=== PATIENT | male | born 1960 | race Caucasian/White ===

== ENCOUNTER 2018-12-19 10:59 | Day surgery (SDC) | payer OTHER ==
[2018-12-10 09:47] VITALS: BMI 27.1
--- NOTE | 2018-12-19 02:47 | P.GSHP ---
History of Present Illness H&P Date: 12/19/18 CHIEF COMPLAINT: Ventral hernia HISTORY OF PRESENT ILLNESS: The patient is a 58-year-old female who presents with a history of swelling and pain along the abdomen from a hernia. Now he presents for surgical intervention. PAST MEDICAL HISTORY: Please see list. PAST SURGICAL HISTORY: Please see list. MEDICATIONS: Please see list. ALLERGIES: Please see list. SOCIAL HISTORY: No illicit drug use FAMILY HISTORY: No reports of Crohn disease or ulcerative colitis. REVIEW OF ORGAN SYSTEMS: CONSTITUTIONAL: No reports of fevers or chills. No reports of weight loss despite prior attempts. GI: Denies any blood in stools or constipation. PHYSICAL EXAM: VITAL SIGNS: Stable GENERAL: Well-developed pleasant female in no acute distress. HEENT: No scleral icterus. Extraocular movements grossly intact. Moist buccal mucosa. NECK: Supple without lymphadenopathy. CHEST: Unlabored respirations. Equal bilateral excursions. CARDIOVASCULAR: Regular rate and rhythm. Distal 2+ pulses. ABDOMEN: Soft, nondistended. Palpable defect of the abdomen. No peritoneal signs. MUSCULOSKELETAL: No clubbing, cyanosis, or edema. ASSESSMENT: 1. Ventral hernia PLAN: 1. Recommend proceeding with robotic ventral hernia repair with mesh. 2. Benefits and risks of surgical intervention was discussed including possibility of open technique. 3. DVT prophylaxis. 4. Antibiotic prophylaxis. Past Medical History Past Medical History: Chest Pain / Angina, Hypertension Additional Past Medical History / Comment(s): STATES HIGH BLOOD PRESSURE WHEN SEEN AT DR IBARRA BUT HE CHANGED DIET AND STARTED TAKING SUPPLEMENTS TO LOWER BP INSTEAD OF STARTING MEDICATION- PATIENT STATES BP HAS IMPROVED . , DDD, HX OF INFLAMED PROSTATE (31 YRS OLD), STATES HE HAS SOME DIFFICULTY STARTING URINE STREAM ., RINGING LEFT EAR. History of Any Multi-Drug Resistant Organisms: None Reported Past Surgical History: No Surgical Hx Reported Past Anesthesia/Blood Transfusion Reactions: Motion Sickness Additional Past Anesthesia/Blood Transfusion Reaction / Comment(s): PATIENT HAS NEVER RECEIVED ANESTHESIA Past Psychological History: No Psychological Hx Reported Smoking Status: Former smoker Past Alcohol Use History: Occasional Additional Past Alcohol Use History / Comment(s): SMOKED 2 YEARS, AGE 17 TO 19. Past Drug Use History: None Reported - Past Family History Mother Family Medical History: No Reported History Medications and Allergies Home Medications Medication Instructions Recorded Confirmed Type [place]-3 Fatty Acids [[place]-3] 2,200 mg PO PC-SUPPER 12/10/18 12/10/18 History Red Yeast Rice 1,200 mg PO BID 12/10/18 12/10/18 History Turmeric Root Extract [Turmeric] 500 mg PO BID 12/10/18 12/10/18 History Allergies Allergy/AdvReac Type Severity Reaction Status Date / Time No Known Allergies Allergy Verified 12/10/18 08:47
[~2018-12-19 10:59] MED LIST: DEXAMETHASONE SOD PHOSPHATE 10 MG/ML 1 ML VIAL IV ONE; HEPARIN SODIUM,PORCINE 5,000 UNIT/ML 1 ML VIAL SQ ONE; LIDOCAINE 1% 20 ML VIAL (10MG/ML) FOR IV START INTRADERMA PRN; MIDAZOLAM (PF) 2 MG/2 ML VIAL IV PRN; ceFAZolin IN SWFI 2 GM/20 ML SYRINGE IVP ONE; fentaNYL (PF) 50 MCG/ML 2 ML AMP IV PRN
[2018-12-19] MEDS: LACTATED RINGERS 1,000 ML IV SCH ×2 (12:52→16:40)
[2018-12-19] MEDS ORDERED: ONDANSETRON 4 MG/2 ML VIAL IVP ONE (13:09)
[2018-12-19] MEDS ORDERED: DEXAMETHASONE SOD PHOSPHATE 10 MG/ML 1 ML VIAL IV ONE (13:10)
[2018-12-19 13:16] LABS: Basophils % (A) 1 %; Eosinophils # (A) 0.1 k/uL (0-0.7); Eosinophils % (A) 2 %; HCT 41.9 % (39.0-53.0); HGB 14.7 gm/dL (13.0-17.5); Lymphocytes # (A) 1.3 k/uL (1.0-4.8); Lymphocytes % (A) 23 %; MCH 31.8 pg (25.0-35.0); MCHC 35.1 g/dL (31.0-37.0); MCV 90.8 fL (80.0-100.0); Mean Platelet Volume 9.7; Monocytes # (A) 0.5 k/uL (0-1.0); Monocytes % (A) 8 %; Neutrophils # (A) 3.3 k/uL (1.3-7.7); Neutrophils % (A) 62 %; Platelet Count 132 k/uL (150-450); RBC 4.62 m/uL (4.30-5.90); RDW 14.3 % (11.5-15.5); WBC 5.4 k/uL (3.8-10.6)
[2018-12-19] MEDS ORDERED: MIDAZOLAM 2 MG/2 ML VIAL IVP ONE (14:05)
[2018-12-19] MEDS ORDERED: ROPIVACAINE 5 MG/ML 30 ML VIAL ONE (16:37)
[2018-12-19] MEDS ORDERED: GLYCOPYRROLATE 0.2 MG/ML 2 ML VIAL ONE (16:37)
[2018-12-19] MEDS ORDERED: ROCURONIUM BROMIDE 10 MG/ML 10 ML VIAL IV ONE (16:37)
[2018-12-19] MEDS ORDERED: LIDOCAINE 2%-EPI 1:100,000 20 ML VIAL ONE (16:37)
[2018-12-19] MEDS ORDERED: PROPOFOL 10 MG/ML 20 ML VIAL IV ONE (16:37)
[2018-12-19] MEDS ORDERED: LIDOCAINE 1% INJ 10MG/ML (20 ML MDV) ONE (16:37)
[2018-12-19] MEDS ORDERED: NEOSTIGMINE 1 MG/ML 10 ML VIAL ONE (16:37)
[2018-12-19] MEDS ORDERED: fentaNYL (PF) 50 MCG/ML 2 ML AMP ONE (16:37)
[2018-12-19] MEDS ORDERED: MIDAZOLAM 2 MG/2 ML VIAL ONE (16:37)
[2018-12-19] MEDS ORDERED: SUCCINYLCHOLINE CHLORIDE 100 MG/5 ML SYR IV ONE (16:37)
[2018-12-19] MEDS ORDERED: BUPIVACAIN-EPI 0.25%-1:200,000 30 ML VIAL SQ ONE (17:25)
[2018-12-19] MEDS ORDERED: LACTATED RINGERS 1,000 ML IV ONE ×2 (17:56)
[2018-12-19 18:16] VITALS: TEMP 97.1
--- NOTE | 2018-12-19 18:18 | P.OP ---
Date of Procedure: 12/19/18 Description of Procedure: SURGEON: BHARGAVI MAXWELL MD PREOPERATIVE DIAGNOSES: 1. Initial umbilical hernia with incarceration, 3 cm 2. Hypertensive heart disease 3. Angina 4. Pre-existing obstructive uropathy POSTOPERATIVE DIAGNOSES: 1. Initial umbilical hernia with incarceration, 3 cm 2. Hypertensive heart disease 3. Angina 4. Pre-existing obstructive uropathy OPERATION: 1. Robotic-assisted da Hugo Xi laparoscopic repair of initial incarcerated ventral hernia 3-cm with mesh, ventralight ST mesh 11.4 cm ANESTHESIA: General with local ESTIMATED BLOOD LOSS: 5 mL. SPECIMENS: Hernia sac COMPLICATIONS: None. INDICATIONS: The patient is a 58-year-old male who presents with ventral hernia of the umbilicus. Surgical intervention with laparoscopic versus robotic and open techniques were reviewed. Placement of mesh was also reviewed. Benefits and risks were thoroughly described. Robotic assisted approach is described. Informed consent was obtained. DESCRIPTION OF PROCEDURE: The patient was brought into the operating room and laid in supine position. After general induction, the abdomen had been prepped and draped in standard sterile fashion. Ioban draping was also placed. Prior to incision, a timeout protocol was confirmed with surgical team regarding the patient's name including procedures to be performed. The robot was primed prior to the procedure. A field block using local anesthetic was placed along hernia site including the proposed port sites. Initial incision was made with an #11 blade along the left upper quadrant. A 0 degree 5 mm laparoscopic trocar entry was performed and insufflated. An 8 mm port was placed along the right upper quadrant and another at the epigastrium under direct localization. The 5- mm port was exchanged for an 12 mm robotic port. Placements of the ports were 15 cm from the target anatomy and 10 cm apart. The [email or web address] robot was previously primed, prepped and draped then docked along the right side of the patient. I then sat at the robot Da Hugo Xi console where working arms of the robot including Bovie cautery connected to robotic scissors, vessel sealer, needle motor bus driver, and graspers placed by the medical office receptionist assistant. Fascial defect of 3 cm of the umbilicus was identified after cleaning the peritoneal fat of the abdominal wall and reducing incarcerated omentum. A 12 mm port was placed along the left upper quadrant for placement of the mesh and for sutures. The incarcerated contents was reduced as the peritoneal fat was cleaned from the abdominal wall. Next, hemostasis was checked with cautery. The hernia defect was oversewn using #1 Stratafix with fascial imbrication x 3. Next, ventralight ST mesh 11.4 cm was placed with the rough side towards the abdominal wall. 2-0 VLOC 9 inch sutures were used to fixate the mesh. A final endoscopic imaging was obtained. All instruments and pneumoperitoneum were evacuated from the abdominal cavity. The da Hugo Xi robot was undocked from the patient. I re-scrubbed into the case for closure of incisions. The fascia of the 12-mm port was probed and less than 8-mm in size. The incisions were reapproximated using 4-0 Monocryl in an interrupted subcuticular fashion. Liquid glue was applied to the skin after cleansing the skin with no rmal saline and dilute hydrogen peroxide. An abdominal binder was placed. An umbilical dressing was placed prior. At the end of the procedure, needle, sponge, and instrument count had been verified correct by surgical asst. The patient was taken to the postanesthesia care unit in stable condition. FINDINGS: 1. Initial incarcerated umbilical 3-cm hernia Plan - Discharge Summary Discharge Rx Participant: Yes New Discharge Prescriptions: New Tamsulosin [Flomax] 0.4 mg PO DAILY #7 cap Ibuprofen [Motrin] 600 mg PO Q8HR PRN #30 tab PRN Reason: Pain HYDROcodone/APAP 5-325MG [[place] 5-325] 1 tab PO Q6HR PRN 3 Days #10 tab PRN Reason: Pain Discontinued Red Yeast Rice 1,200 mg PO BID Turmeric Root Extract [Turmeric] 500 mg PO BID [place]-3 Fatty Acids [[place]-3] 2,200 mg PO PC-SUPPER Discharge Medication List HYDROcodone/APAP 5-325MG [[place] 5-325] 1 tab PO Q6HR PRN 3 Days #10 tab 12/19/18 [Rx] Ibuprofen [Motrin] 600 mg PO Q8HR PRN #30 tab 12/19/18 [Rx] Tamsulosin [Flomax] 0.4 mg PO DAILY #7 cap 12/19/18 [Rx] Follow up Appointment(s)/Referral(s): Bhargavi Maxwell MD [STAFF PHYSICIAN] - 12/23/18 Patient Instructions/Handouts: Laparoscopic Herniorrhaphy (DC), Abdominal Binder (ED), Ventral Hernia Repair (GEN) Activity/Diet/Wound Care/Special Instructions: NO lifting over 4 pounds in 4 weeks. May shower. No bath tub soaks. Do not remove dressing along abdomen as your surgeon will remove in office. Do not drive while on narcotics. Wear abdominal binder for comfort Discharge Disposition: HOME SELF-CARE
[2018-12-19] MEDS ORDERED: TAMSULOSIN 0.4 MG CAP.ER.24H PO ONE (18:30)
[2018-12-19 19:15] VITALS: PULSE 68; RESP 16
[2018-12-19 19:44] VITALS: BP 152/86
--- NOTE | 2018-12-22 12:36 | P.ONQ ---
Anesthesiology Proc Note - PNB - Peripheral Nerve Block Performed Bilateral Rectus Abdominis Single Time Out Performed: Yes Procedure Start Time: 14:44 Procedure Stop Time: 14:49 Indication: Acute Post-Operative Pain, Requested by physician Sedation Type: Sedate with meaningful contact maintained Preparation: Sterile Prep Position: Supine Needle Size: 50mm (2") Needle Gauge: 21 Technique: Ultrasound Injectate: 0.5% Ropivacaine (see comment for volume) (ropi .5% 15cc plus xylo2% 10cc each side) Blood Aspirated: No Pain Paresthesia on Injection Noted: No Resistance on Injection: Normal Events: Uneventful and Well Tolerated
== END 2018-12-19 21:08 | disposition home or self-care (01) ==
LOC: OR 10:59
PROVIDERS: ATTEND Surgery Plastic and Reconstructive Surgery
DX: I10 Essential (primary) hypertension (principal); Z87.891 Personal history of nicotine dependence; R39.11 Hesitancy of micturition; K42.0 Umbilical hernia with obstruction, without gangrene; I11.9 Hypertensive heart disease without heart failure; I20.9 Angina pectoris, unspecified; N13.9 Obstructive and reflux uropathy, unspecified
CPT/HCPCS: 49653; 64488; S2900; 85025; 88302